=== PATIENT | female | born 1975 | race Caucasian/White ===

== ENCOUNTER 2019-10-12 12:28 | Emergency (ER) | payer BC ==
[~2019-10-12] VITALS: Ht 170.2 cm; Wt 80.7 kg
[~2019-10-12 12:28] MED LIST: COUMADIN 10MG T10 M1; NORCO 5-325 TA1 EACH PO; ZOFRAN4 MG PO
[2019-10-12] MEDS ORDERED: LEVO-T100 MCG PO (12:37)
[2019-10-12] MEDS ORDERED: VENLAFAXINE HC150 MG PO (12:37)
[2019-10-12] MEDS ORDERED: LAMOTRIGINE250 MG PO (12:38)
[2019-10-12] MEDS ORDERED: GLUMETZA500 PO (12:38)
[2019-10-12] MEDS ORDERED: TOPAMAX100 MG PO (12:39)
[2019-10-12] MEDS ORDERED: LIPITOR 20 MG T20 M1 PO (12:39)
[2019-10-12] MEDS ORDERED: TRULICITY0.75 MG/0. SW&SWALLOW (12:39)
[2019-10-12] MEDS ORDERED: LORAZEPAM 1 MG T1 MG PO (12:40)
[2019-10-12 12:59] LABS: ABSOLUTE EOSINOPHILS 0.1 thou/uL (0.0-0.7); ABSOLUTE LYMPHOCYTES 1.5 thou/uL (0.8-5.3); ABSOLUTE MONOCYTES 0.3 thou/uL (0.0-1.2); ABSOLUTE NEUTROPHILS 4.8 thou/uL (1.6-8.1); BASOPHILS 0.7 %; EOSINOPHILS 0.9 %; HEMOGLOBIN 13.6 gm/dL (12.0-15.0); LYMPHOCYTES 22.5 %; MCHC 34.1 g/dL (28.0-37.0); MCV 96.9 fL (80.0-100.0); MONOCYTES 3.8 %; MPV 10.7 fl. (7.2-11.1); NUCLEATED RBCS 0 /100WBC; PLATELET COUNT* 183 thou/uL (150-400); POLYS 72.1 %; RBC 4.13 mil/uL (4.20-5.00); RDW-CV 12.3 % (10.5-14.5); WBC 6.7 thou/uL (4.0-11.0)
[2019-10-12 13:11] LABS: ANION GAP 9 mmol/L (7-16); BUN 7 mg/dL (7-18); CALCIUM 8.3 mg/dL (8.5-10.1); CHLORIDE 107 mmol/L (98-107); CO2 25 mmol/L (21-32); CREATININE 0.9 mg/dL (0.6-1.3); GLUCOSE 146 mg/dL (70-99); POTASSIUM 3.8 mmol/L (3.5-5.1); SODIUM 141 mmol/L (136-145)
[2019-10-12 13:12] LABS: APTT 25.7 Seconds (25.0-31.3); PROTIME 10.3 Seconds (9.20-11.50)
[2019-10-12 13:23] LABS: ALBUMIN 2.9 g/dL (3.4-5.0); ALKALINE PHOSPHATASE 74 U/L (46-116); CK-MB MASS < 0.5 ng/mL (<0.5-3.6); LIPASE 71 U/L (73-393); MAGNESIUM 1.9 mg/dL (1.8-2.4); NT-PRO BRAIN NAT PEPTIDE 74 pg/mL (<300); SGOT 13 U/L (15-37); SGPT 21 U/L (30-65); TOTAL BILIRUBIN 0.3 mg/dL (<0.1-1.0); TOTAL PROTEIN 6.4 g/dL (6.4-8.2)
[2019-10-12 13:52] VITALS: BP 102/62
--- NOTE | 2019-10-13 12:18 | EKG ---
[place] [address] ELECTROCARDIOGRAM REPORT Name: JT ROBLES Room: [facility]#: [id number] Admission: 10/12/19 Attend Phys: Discharge: 10/12/19 Date of : 79 Date of Service: 10/12/19 1232 Report #: [id number] THIS REPORT FOR: //name// [facility] ED Test Date: 2019-10-12 Test Time: 12:32:13 Pat Name: JT ROBLES Department: Room: Gender: [employer]: DAYANARA : 1975 Requested By: James Vasquez Order Number: [id number] MD: Gilberto Neville Measurements Intervals [place]g Rate: 88 P: 71 IA: 162 QRS: 44 QRSD: 86 T: 65 QT: 345 QTc: 418 Interpretive Statements Sinus rhythm No previous ECG available for comparison Electronically Signed On 10-13-2019 12:17:24 SUPERVISOR RESIDENTIAL by Gilberto Neville [email or web address] <ELECTRONICALLY SIGNED> By: Gilberto Neville MD, [facility] 10/13/19 1217 1232 1232 Gilberto Neville MD, FACC /EPI
== END 2019-10-12 13:53 | disposition home or self-care (01) ==
LOC: M.ERS 12:28
PROVIDERS: Family Medicine
DX: R07.89 Other chest pain (principal); F17.210 Nicotine dependence, cigarettes, uncomplicated

== ENCOUNTER 2020-04-02 10:22 | Emergency (ER) | payer BC ==
[~2020-04-02] VITALS: Ht 167.6 cm; Wt 74.8 kg
[~2020-04-02 10:22] MED LIST changes: +GLUMETZA500 PO; +LAMOTRIGINE250 MG PO; +LEVO-T100 MCG PO; +LIPITOR 20 MG T20 M1 PO; +LORAZEPAM 1 MG T1 MG PO; +TOPAMAX100 MG PO; +TRULICITY0.75 MG/0. SW&SWALLOW; +VENLAFAXINE HC150 MG PO
[2020-04-02 12:57] VITALS: BP 107/71
== END 2020-04-02 12:59 | disposition home or self-care (01) ==
LOC: M.ERS 10:22
DX: B34.9 Viral infection, unspecified (principal); R51 Headache; Z20.828 Contact with and (suspected) exposure to other viral communicable diseases; E11.9 Type 2 diabetes mellitus without complications; Z86.718 Personal history of other venous thrombosis and embolism

== ENCOUNTER 2020-08-03 11:46 | Emergency (ER) | payer OTHER ==
[~2020-08-03] VITALS: Ht 170.2 cm; Wt 74.8 kg
[2020-08-03 12:42] VITALS: BP 145/84
== END 2020-08-03 12:42 | disposition home or self-care (01) ==
LOC: M.ERS 11:46
DX: B34.9 Viral infection, unspecified (principal); Z20.828 Contact with and (suspected) exposure to other viral communicable diseases; E11.9 Type 2 diabetes mellitus without complications

== ENCOUNTER 2020-08-21 14:46 | Emergency (ER) | payer OTHER ==
[~2020-08-21] VITALS: Ht 170.2 cm; Wt 74.8 kg
[2020-08-21 15:35] VITALS: BP 131/75
== END 2020-08-21 15:35 | disposition home or self-care (01) ==
LOC: M.ERS 14:46
DX: U07.1 COVID-19 (principal); E11.9 Type 2 diabetes mellitus without complications; Z86.718 Personal history of other venous thrombosis and embolism; Z79.899 Other long term (current) drug therapy

== ENCOUNTER 2020-10-09 14:53 | Emergency (ER) | payer OTHER ==
[~2020-10-09] VITALS: Ht 170.2 cm; Wt 74.8 kg
[2020-10-09 15:44] LABS: ABSOLUTE BASOPHILS 0.1 thou/uL (0.0-0.2); ABSOLUTE EOSINOPHILS 0.1 thou/uL (0.0-0.7); ABSOLUTE LYMPHOCYTES 2.3 thou/uL (0.8-5.3); ABSOLUTE MONOCYTES 0.4 thou/uL (0.0-1.2); ABSOLUTE NEUTROPHILS 4.5 thou/uL (1.6-8.1); BASOPHILS 1.4 %; EOSINOPHILS 1.2 %; HEMATOCRIT 37.5 % (37.0-47.0); HEMOGLOBIN 12.9 gm/dL (12.0-15.0); MCH 33.6 pg (26.0-34.0); MCHC 34.2 g/dL (28.0-37.0); MCV 98.1 fL (80.0-100.0); MONOCYTES 4.8 %; MPV 9.7 fl. (7.2-11.1); NUCLEATED RBCS 0 /100WBC; PLATELET COUNT* 197 thou/uL (150-400); POLYS 60.6 %; RBC 3.83 mil/uL (4.20-5.00); RDW-CV 12.2 % (10.5-14.5); WBC 7.3 thou/uL (4.0-11.0)
[2020-10-09 15:47] LABS: URINE BILIRUBIN NEGATIVE (Negative); URINE BLOOD NEGATIVE (Negative); URINE CLARITY CLEAR; URINE COLOR YELLOW; URINE GLUCOSE-RANDOM NEGATIVE (Negative); URINE KETONES NEGATIVE (Negative); URINE LEUKOCYTES-REFLEX NEGATIVE (Negative); URINE NITRITE-REFLEX NEGATIVE (Negative); URINE PROTEIN NEGATIVE (Negative); URINE UROBILINOGEN 0.2 E.U./dl (0.2-1.0)
[2020-10-09 15:50] LABS: CALCIUM 8.6 mg/dL (8.5-10.1); CREATININE 0.9 mg/dL (0.6-1.3); POTASSIUM 4.2 mmol/L (3.5-5.1)
[2020-10-09 15:54] LABS: ALBUMIN 3.1 g/dL (3.4-5.0); TOTAL BILIRUBIN 0.2 mg/dL (<0.1-1.0); TOTAL PROTEIN 6.6 g/dL (6.4-8.2)
[2020-10-09] MEDS ORDERED: NORCO5 PO (18:14)
[2020-10-09 18:34] VITALS: BP 112/64
== END 2020-10-09 18:34 | disposition home or self-care (01) ==
LOC: M.ERS 14:53
PROVIDERS: Physician Assistant
DX: R10.31 Right lower quadrant pain (principal); E11.9 Type 2 diabetes mellitus without complications; E03.9 Hypothyroidism, unspecified; Z86.718 Personal history of other venous thrombosis and embolism